=== PATIENT | male | born 1940 | race Caucasian/White ===

== ENCOUNTER → 2018-02-11 | Outpatient (CLI) | payer MEDICARE, OTHER ==
[2018-02-11 14:46] LABS: ABSOLUTE EOSINOPHILS # (AUTO) 0.1 10^3/uL (0.0-0.6); ABSOLUTE LYMPHOCYTES (AUTO) 1.7 10^3/uL (0.5-4.7); ABSOLUTE MONOCYTES (AUTO) 0.6 10^3/uL (0.1-1.4); ABSOLUTE NEUT (AUTO) 4.1 10^3/uL (1.7-8.2); BASOPHILS % (AUTO) 0.2 % (0-2); EOSINOPHILS % (AUTO) 1.1 % (0-6); HEMATOCRIT 44.7 % (37.9-51.0); HEMOGLOBIN 15.9 g/dL (13.5-17.0); LYMPHOCYTES % (AUTO) 26.4 % (13-45); MEAN CORPUSCULAR HEMOGLOBIN 31.2 pg (27.0-33.4); MEAN CORPUSCULAR HGB CONC 35.5 g/dL (32.0-36.0); MEAN CORPUSCULAR VOLUME 88 fl (80-97); MONOCYTES % (AUTO) 9.5 % (3-13); PLATELET COUNT 278 10^3/uL (150-450); RED BLOOD COUNT 5.09 10^6/uL (4.35-5.55); RED CELL DISTRIBUTION WIDTH 12.7 % (11.5-14.0); SEGMENTED NEUTROPHILS % (AUTO) 62.8 % (42-78); TOTAL CELLS COUNTED % (AUTO) 100 %; WHITE BLOOD COUNT 6.5 10^3/uL (4.0-10.5)
[2018-02-11 14:52] LABS: APPEARANCE,URINE SLIGHTLY-CLOUDY; BILIRUBIN,URINE NEGATIVE (NEGATIVE); COLOR,URINE YELLOW; GLUCOSE, URINE NEGATIVE (NEGATIVE); KETONES,URINE NEGATIVE (NEGATIVE); LEUKOCYTE ESTERASE,URINE NEGATIVE (NEGATIVE); NITRITE,URINE NEGATIVE (NEGATIVE); PROTEIN,URINE NEGATIVE (NEGATIVE); URINE SPECIFIC GRAVITY 1.019
[2018-02-11 15:13] LABS: ANION GAP 10 (5-19); BLOOD UREA NITROGEN 15 mg/dL (7-20); CALCIUM 10.5 mg/dL (8.4-10.2); CARBON DIOXIDE 28 mmol/L (22-30); CHLORIDE 106 mmol/L (98-107); GLUCOSE 102 mg/dL (75-110); POTASSIUM 4.7 mmol/L (3.6-5.0); SODIUM 143.5 mmol/L (137-145)
--- NOTE | 2018-02-11 15:25 | RADIOLOGY REPORT (SQ) ---
EXAM DESCRIPTION: CHEST SINGLE VIEW COMPLETED DATE/TIME: 02/11/2018 2:45 pm REASON FOR STUDY: PRE-OP COMPARISON: 05/28/2010 EXAM PARAMETERS: NUMBER OF VIEWS: One view. TECHNIQUE: Single frontal radiographic view of the chest acquired. RADIATION DOSE: NA LIMITATIONS: None. FINDINGS: LUNGS AND PLEURA: No opacities, masses or pneumothorax. No pleural effusion. MEDIASTINUM AND HILAR STRUCTURES: No masses. Contour normal. HEART AND VASCULAR STRUCTURES: Heart normal in size. Normal vasculature. BONES: No acute findings. HARDWARE: None in the chest. OTHER: No other significant finding. IMPRESSION: NO ACUTE RADIOGRAPHIC FINDING IN THE CHEST. TECHNICAL DOCUMENTATION: JOB ID: [id number] [employer]- All Rights Reserved Reading location - IP/workstation name: [email or web address]
--- NOTE | 2018-02-12 09:00 | EKG REPORT ---
SEVERITY:- OTHERWISE NORMAL ECG - SINUS RHYTHM LEFT AXIS DEVIATION LOW VOLTAGE IN FRONTAL LEADS : Confirmed by: Marky Higgins 12-Feb-2018 08:59:59
== END ==
LOC: OD 13:51
PROVIDERS: ATTEND Orthopaedic Surgery
DX: Z01.810 Encounter for preprocedural cardiovascular examination (principal); Z01.812 Encounter for preprocedural laboratory examination; Z01.818 Encounter for other preprocedural examination
CPT/HCPCS: 36415; 71045; 80048; 81001; 85025; 93005; 93010

== ENCOUNTER 2018-03-23 10:48 | Emergency (ER) | payer MEDICARE, OTHER ==
[2018-03-23] MEDS ORDERED: MINERAL OIL 30 ML UDCUP PR ONE (11:12)
--- NOTE | 2018-03-23 11:14 | ER Document Report ---
ED Medical Screen (RME) - General Chief Complaint: Constipation Stated Complaint: CONSTIPATION Time Seen by Provider: 03/23/18 11:10 Notes: 77-year-old male patient had rotator cuff surgery done 1 week ago. He has not had a bowel movement in the past 7 days. He has been taking pain medication. He has not taken anything to help move his bowels until this morning when he drank a full bottle of mag citrate. He does feel like his bowels need to move but cannot get it out. There is some nauseousness. He does not normally have constipation. I have greeted and performed a rapid initial assessment of this patient. A comprehensive ED assessment and evaluation of the patient, analysis of test results and completion of the medical decision making process will be conducted by additional ED providers. TRAVEL OUTSIDE OF THE [place] IN LAST 30 DAYS: No - Related Data Allergies/Adverse Reactions: No Known Allergies Allergy (Unverified 03/23/18 10:53) Physical Exam - Vital signs Vitals: Temp Pulse Resp BP Pulse Ox 98.1 F 96 18 118/85 96 03/23/18 11:00 03/23/18 11:00 03/23/18 11:00 03/23/18 11:00 03/23/18 11:00 Course - Vital Signs Vital signs: Temp Pulse Resp BP Pulse Ox 98.1 F 96 18 118/85 96 03/23/18 11:00 03/23/18 11:00 03/23/18 11:00 03/23/18 11:00 03/23/18 11:00 Doctor's Discharge - Discharge Referrals: GAURAV MOORE MD [Primary Care Provider] - Follow up as needed
--- NOTE | 2018-03-23 12:47 | RADIOLOGY REPORT (SQ) ---
EXAM DESCRIPTION: ACUTE ABDOMEN SERIES COMPLETED DATE/TIME: 03/23/2018 12:32 pm REASON FOR STUDY: 41, constipation COMPARISON: Chest film 02/11/2018 NUMBER OF VIEWS: Three views. TECHNIQUE: Frontal chest, supine abdomen and upright abdomen radiographic images acquired. LIMITATIONS: None. FINDINGS: CHEST: Lungs clear of infiltrates. Cardiac silhouette size, yasemin unremarkable. No acute bony changes upper chest. FREE AIR: None. No abnormal gas collections. BOWEL GAS PATTERN: Abnormal bowel gas pattern with air-fluid levels throughout stomach small bowel an d colon. No dilated loops. Massive stool in the rectosigmoid. Findings could represent ileus rathe r than distal colon obstruction. CALCIFICATIONS: No suspicious calcifications. HARDWARE: Clips right upper quadrant post cholecystectomy SOFT TISSUES: No gross mass or suggestion of organomegaly. BONES: No acute fracture. No worrisome bone lesions. OTHER: No other significant finding. IMPRESSION: Large amount of stool in the rectosigmoid. Otherwise, bowel gas pattern demonstrates air-fluid levels throughout non dilated stomach small bowel and colon. This could represent an ileus or could be due to distal fecal impaction TECHNICAL DOCUMENTATION: JOB ID: [id number] [employer]- All Rights Reserved Reading location - IP/workstation name: [email or web address]
--- NOTE | 2018-03-23 12:58 | ER Document Report ---
ED General - General Chief Complaint: Constipation Stated Complaint: CONSTIPATION Time Seen by Provider: 03/23/18 11:10 Information source: Patient Notes: 77-year-old male who presents with no bowel movement for 6 days. He states he just started narcotic medications prior to the onset of this constipation. He was prescribed this for a recent rotator cuff surgery. Patient denies any real abdominal discomfort. No nausea or vomiting. No urinary hesitancy or dysuria. TRAVEL OUTSIDE OF THE [place] IN LAST 30 DAYS: No - HPI Onset: Other - See above Onset/Duration: Gradual Quality of pain: Achy Severity: Mild Pain Level: Denies Associated symptoms: Other - See above Exacerbated by: Denies Relieved by: Denies Similar symptoms previously: No Recently seen / treated by doctor: No - Related Data Allergies/Adverse Reactions: No Known Allergies Allergy (Unverified 03/23/18 10:53) Past Medical History - Social History Smoking Status: Former Smoker Chew tobacco use (# tins/day): No Frequency of alcohol use: Rare Drug Abuse: None Family History: Reviewed & Not Pertinent Patient has suicidal ideation: No Patient has homicidal ideation: No Renal/ Medical History: Denies: Hx Peritoneal Dialysis Past Surgical History: Reports: Hx Abdominal Surgery, Hx Cardiac Catheterization - x2 stents, Hx Cholecystectomy, Hx Orthopedic Surgery - left rotator cuff, right knee scope, neck Physical Exam - Vital signs Vitals: Temp Pulse Resp BP Pulse Ox 98.1 F 96 18 118/85 96 03/23/18 11:00 03/23/18 11:00 03/23/18 11:00 03/23/18 11:00 03/23/18 11:00 Notes: Reviewed vital signs and nursing note as charted by RN. CONSTITUTIONAL: Alert and oriented and responds appropriately to questions. Well -appearing; well-nourished ABD/GI: Normal bowel sounds; non-distended; soft, no focal tenderness to deep palpation of all 4 quadrants of the abdomen. No abdominal bruits or palpable masses GI/: Patient has obvious stool impaction on rectal examination Course - Re-evaluation Re-evalutation: 03/23/18 12:54 Three-way x-ray of the abdomen as recorded showing no obvious free air under the diaphragm with some minimal scattered air fluid levels. Patient has had no vomiting. Fecal impaction on examination. Procedure note: With the patient's verbal consent I had the patient lay on his right lateral decubitus side and bring his knees to his chest. Motor Vehicles Inspector was present. I used copious amount of lubrication and manually disimpacted the patient with a large volume of brown colored hard stool. Patient feels much improved. Still no tenderness on repeat examination. Patient still has no vomiting. Patient will be discharged home with strict return precautions and follow-up with the primary care physician. - Vital Signs Vital signs: Temp Pulse Resp BP Pulse Ox 98.1 F 96 18 118/85 96 03/23/18 11:00 03/23/18 11:00 03/23/18 11:00 03/23/18 11:03/23/18 11:00 Discharge - Discharge Clinical Impression: Fecal impaction in rectum Condition: Good Disposition: HOME, SELF-CARE Additional Instructions: Come back immediately for any abdominal pain, fevers, continued inability to have a bowel movement, or any other acute problems. Please discontinue the narcotic medications. Please follow-up with the primary care physician as we have discussed. Referrals: GAURAV MOORE MD [ACTIVE STAFF] - Follow up as needed
[2018-03-23 13:54] VITALS: BP 121/70
== END 2018-03-23 13:55 | disposition home or self-care (01) ==
LOC: ER 10:48
DX: K56.41 Fecal impaction (principal); Z87.891 Personal history of nicotine dependence
CPT/HCPCS: 74022; 99283; J3490